=== PATIENT | female | born 1985 | race Caucasian/White ===

== ENCOUNTER 2021-04-21 22:49 | Emergency (ER) | payer OTHER ==
[~2021-04-21 22:49] MED LIST: AEROCHAMBER1 EA XX; IBUPROFEN800 MG PO; PREDNISONE 20 M20 MG PO; PREDNISONE20 MG PO; PROVENTIL HFA6.7 GM INH
[2021-04-22 00:11] LABS: RED BLOOD COUNT 4.77 M/UL (4.00-5.10); WHITE BLOOD COUNT 6.6 K/UL (4.5-11.0)
[2021-04-22 00:26] LABS: BUN/CREATININE RATIO 14 (0-10)
[2021-04-22] MEDS ORDERED: MIRALAX17 GM PO (01:45)
[2021-04-22] MEDS ORDERED: BENTYL 20MG TAB20 MG PO (01:45)
[2021-04-22] MEDS ORDERED: PYRIDIUM200 MG PO (01:45)
== END 2021-04-22 01:45 | disposition home or self-care (01) ==
LOC: ER1 22:49
PROVIDERS: Physician Assistant Medical
DX: R10.9 Unspecified abdominal pain (principal); R50.9 Fever, unspecified; J45.909 Unspecified asthma, uncomplicated; Z87.442 Personal history of urinary calculi; Z90.49 Acquired absence of other specified parts of digestive tract
CPT/HCPCS: 80053; 81001; 83605; 85025; 96374; 99284; J2405